=== PATIENT | female | born 1970 | race Caucasian/White ===

== ENCOUNTER 2022-09-15 17:37 | Emergency (ER) | payer BC, SELFPAY ==
[2022-09-15 17:49] VITALS: BP 118/78; PULSE 66; RESP 18; TEMP 36.8; O2SAT 96
--- NOTE | 2022-09-15 18:06 | CRLHL7_ITS ---
For Patients: As a result of the Century Cures Act, medical imaging exams and procedure reports are released immediately into your electronic medical record. You may view this report before your referring provider. If you have questions, please contact your health care provider. INDICATION: Right lower quadrant pain, rule out appy. TECHNIQUE: CT abdomen and pelvis acquired with 81 mL Isovue 370 IV contrast. Coronal and sagittal reformats were generated. COMPARISON: None. FINDINGS: Lower chest: Unremarkable. Liver: Unremarkable. Gallbladder and bile ducts: Unremarkable. No stones or inflammation. No biliary dilation. Spleen: Unremarkable. Calcifications are likely granulomas. Pancreas: Unremarkable. Adrenal glands: Unremarkable. No nodules. Kidneys and Ureters: Unremarkable. No suspicious masses, stones, or hydronephrosis. Lymph Nodes and Retroperitoneum: Unremarkable. Vasculature: Unremarkable. GI tract: Unremarkable. Normal in caliber. Normal appendix. Peritoneum/Abdominal Wall: Unremarkable. No free air or free fluid. Small fat containing periumbilical hernia. Pelvic Viscera: Surgically absent uterus. Left adnexal cystic lesion is probably an ovarian cyst. Bladder: Unremarkable. Bones: Unremarkable for age. IMPRESSION: No CT findings to explain the cause of the patient`s symptoms. Specifically, the appendix is normal. Please note that all CT scans at this facility use dose modulation, iterative reconstruction, and/or weight-based dosing when appropriate to reduce radiation dose to as low as reasonably achievable. Dictated by Fred Gregory MD @ 09/15/2022 6:56:39 PM (Electronically Signed)
--- NOTE | 2022-09-15 18:08 | ED.GENADULT ---
HPI - General Adult General Time Seen by Provider: 18:08 Date Seen: 09/15/22 Chief complaint: Abdominal Pain Stated complaint: Possible Appendicitis Time Seen by Provider: 09/15/22 17:38 Source: patient Mode of arrival: ambulatory Limitations: no limitations History of Present Illness HPI narrative: Patient is a 52 year white female was seen in urgent care today with 2 day history of abdominal pain, started in her periumbilical area and radiated down her right lower quadrant now. She has had hysterectomy and right oophorectomy, left ovaries intact. Most of her discomfort in her right lower quadrant. Did feel some pain in her abdomen when she had bumps on the car ride here. Definitely tender to touch her right lower abdomen. No dysuria, frequency, vaginal bleeding. No diarrhea of significance. No shortness of breath, no COVID symptoms, no chest pain Related Data Previous Rx's Medication Instructions Recorded sertraline 50 mg tablet 50 mg PO QDAY #30 tabs 06/05/22 hydrocodone 5 mg-acetaminophen 325 1 tab PO Q8H #10 tabs 09/15/22 mg tablet Allergies Allergy/AdvReac Type Severity Reaction Status Date / Time No Known Allergies Allergy Unknown Verified 09/15/22 17:49 Review of Systems Status of ROS: Reports: 10 or more systems reviewed and unremarkable except as noted in History and below PFSH [facility] Surgical History History of hysterectomy Social History Smoking Status: Never smoker Do you use any of these nicotine containing products: None Second hand tobacco smoke exposure: No How often do you have a drink containing alcohol: 2-3 times a week How many standard drinks containing alcohol do you have on a typical day: 1 or 2 How often do you have six or more drinks on one occasion: Never AUDIT-C Alcohol total score: 3 Non-prescribed substance use: denies use service: No Exam Narrative: Exam Narrative: Objective: Vital signs unremarkable In general patient is in no marked distress very pleasant HEENT unremarkable Chest clear Heart regular Abdomen benign soft except in the right lower quadrant she has voluntary guarding mild peritoneal tenderness, no palpable mass. No left lower quadrant pain or tenderness, negative CVA tenderness Extremities are no edema Neurologic nonfocal grossly good peripheral perfusion noted Const: Vital Signs, click to edit/add: Vital Signs - 24 hr 09/15/22 17:49 Temperature 98.3 F Pulse Rate [Pulse Oximeter] 66 Respiratory Rate 18 Blood Pressure [Ri ght Upper Arm] 118/78 Pulse Oximetry 96 Oxygen Delivery Me thod Room Air Course Vital Signs Vital signs: Initial Vital Signs Temperature 98.3 F 09/15/22 17:49 Temperature Source Temporal Artery Scan 09/15/22 17:49 Pulse Rate 66 09/15/22 17:49 Pulse Rhythm 09/15/22 17:49 Respiratory Rate 18 09/15/22 17:49 Blood Pressure 118/78 09/15/22 17:49 Blood Pressure Mean 91 09/15/22 17:49 Blood Pressure Position Supine 09/15/22 17:49 Pulse Oximetry 96 09/15/22 17:49 Oxygen Delivery Method 09/15/22 17:49 Vital Signs Temperature 98.3 F 09/15/22 17:49 Pulse Rate 66 09/15/22 17:49 Respiratory Rate 18 09/15/22 17:49 Blood Pressure 118/78 09/15/22 17:49 Pulse Oximetry 96 09/15/22 17:49 Oxygen Delivery Method 09/15/22 17:49 Temperature 98.3 F 09/15/22 17:49 Pulse Rate 66 09/15/22 17:49 Respiratory Rate 18 09/15/22 17:49 Blood Pressure 118/78 09/15/22 17:49 Pulse Oximetry 96 09/15/22 17:49 Oxygen Delivery Method 09/15/22 17:49 Medical Decision Making MDM Narrative Medical decision making narrative: Patient had a normal CBC and a negative urinalysis at the urgent care today. But she presents back on recommendation to rule out appendicitisThe patient has h a hysterectomy and right oophorectomy, left ovaries left intact. Gallbladder is intact. Patient at this point I think needs to have rule out appendicitis, rule out diverticulitis, rule out intestinal obstruction. Patient will get a CT scan with IV contrast of the abdomen pelvis, labs fluids disposition pending findings above. Addendum patient has a CT scan of the abdomen looks unremarkable per Radiology. Labs look reassuring. She has no right ovary which is the side of her abdominal discomfort. Small cyst on the left ovary. At this point I would recommend simply pain control observation, fluids, light diet. Update regular doctor within the next 12:48 p.m., return to ED sooner worsening abdominal pain changes or concerns. Will dispense some [place] to use sparingly, and only at home caution with set of affect. May use Advil as well Lab Data Labs: Lab Results 09/15/22 09/15/22 Range/Units 18:28 18:28 Sodium 136 (135-149) mmol/L Potassium 3.5 L (3.6-5.1) mmol/L Chloride 104 (96-114) mmol/L Carbon Dioxide 28 (20-32) mmol/L BUN 9 (7-30) mg/dL Creatinine 0.6 (0.5-1.5) mg/dL Estimated Creat Clear 88.72 Estimated GFR 109 ml/min Glucose 82 (60-115) mg/dL Calcium 8.4 (8.4-10.6) mg/dL Total Bilirubin 0.4 (0.1-1.5) mg/dL Direct Bilirubin 0.2 (0.0-0.5) mg/dL AST 24 (12-35) U/L ALT 22 (4-35) U/L Alkaline Phosphatase 52 (40-150) U/L C-Reactive Protein 0.6 (0.5-1.0) mg/dL Total Protein 7.3 (6.0-8.3) g/dL Albumin 4.3 (3.3-5.0) g/dL Amylase 71 (18-89) U/L SARS-CoV-2 (PCR) POSITIVE SARS-CoV-2 A (Negative) Discharge Plan Discharge Clinical Impression: Abdominal pain, acute Patient Disposition: Home, Self-Care Condition: Stable Instructions: Acute Abdominal Pain (DC) Additional Instructions: Light activity, light diet, pain med as needed at home. May use Advil as well. Observation, update regular doctor next 24-48 hours, return to ED sooner return occurring pain worsening. 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
[2022-09-15] MEDS: 0.9 % SODIUM CHLORIDE 1000 ml 1,000 ML 6000 ML IV (18:44)
[2022-09-15 18:49] LABS: Albumin* 4.3 g/dL (3.3-5.0); Chloride* 104 mmol/L (96-114)
[2022-09-15 18:50] LABS: Potassium* 3.5 mmol/L (3.6-5.1); Sodium* 136 mmol/L (135-149)
[2022-09-15 18:52] LABS: Amylase* 71 U/L (18-89); Creatinine* 0.6 mg/dL (0.5-1.5); Est. Creatinine Clearance* 88.72; Estimated Glomerular Filt Rate 109 ml/min
[2022-09-15 18:53] LABS: Alanine Aminotransferase* 22 U/L (4-35); Alkaline Phosphatase* 52 U/L (40-150); Aspartate Amino Transferase* 24 U/L (12-35); Bilirubin Direct* 0.2 mg/dL (0.0-0.5); Bilirubin Total* 0.4 mg/dL (0.1-1.5); Blood Urea Nitrogen* 9 mg/dL (7-30); Carbon Dioxide* 28 mmol/L (20-32); Glucose* 82 mg/dL (60-115); Total Protein* 7.3 g/dL (6.0-8.3)
[2022-09-15 18:54] LABS: Calcium* 8.4 mg/dL (8.4-10.6)
[2022-09-15 18:56] LABS: C Reactive Protein* 0.6 mg/dL (0.5-1.0)
[2022-09-15 19:19] LABS: SARS PCR* POSITIVE SARS-CoV-2 (Negative)
== END 2022-09-15 19:20 | disposition home or self-care (01) ==
PROVIDERS: Emergency Provider Family Medicine; PCP Nurse Practitioner Family
DX: R10.0 Acute abdomen (principal)
CPT/HCPCS: 36415; 74177; 80048; 80076; 82150; 86140; 87635; 99284; J7030; Q9967

== ENCOUNTER 2023-04-16 15:35 | Outpatient (CLI) | payer SELFPAY | END 2023-04-16 15:36 | disposition home or self-care (01) | LOC: LONREF 15:36 | PROVIDERS: PCP Nurse Practitioner Family; Visit Provider Nurse Practitioner Family | DX: R20.0 Anesthesia of skin (principal); R20.2 Paresthesia of skin; T14.8XXA Other injury of unspecified body region, initial encounter | CPT/HCPCS: 84443 ==

== ENCOUNTER 2023-04-28 14:59 | Outpatient (CLI) | payer SELFPAY | END 2023-04-28 15:00 | disposition home or self-care (01) | PROVIDERS: PCP Nurse Practitioner Family; Visit Provider Nurse Practitioner Family | DX: R53.83 Other fatigue (principal); F32.A Depression, unspecified; N95.1 Menopausal and female climacteric states | CPT/HCPCS: 82670; 83001; 84481 ==

== ENCOUNTER 2023-06-22 06:36 | Day surgery (SDC) | payer SELFPAY ==
[2023-06-22] MEDS: LACTATED RINGERS 1000 ML 1,000 ML 100 ML IV (06:35)
[2023-06-22] MEDS: fentaNYL 100 MCG/2 ML inj IVP (06:35)
[2023-06-22] MEDS: MIDAZOLAM HCL 1 MG/ML inj IVP (06:35)
[2023-06-22 06:50] VITALS: BMI 29.6
[2023-06-22 07:02] VITALS: BP 96/63; PULSE 65; RESP 16; TEMP 36.5; O2SAT 97
[2023-06-22] MEDS: SODIUM CHLORIDE 0.9 % (FLUSH) 10 ML SYRINGE IVF (07:15)
[2023-06-22 07:21] VITALS: BP 107/71; PULSE 65; RESP 16; O2SAT 97
--- NOTE | 2023-06-22 07:23 | SUR.PREOP ---
TIME?OUT:?0720 PT/RN/MDA?VERIFICATION?OF?SURGICAL?SITE,?PROCEDURE,?AND?CONSENT OBTAINED?PRIOR?TO?INVASIVE?PROCEDURE.left wrist r devaughn dhaliwal crna pt and consent
[2023-06-22] MEDS: CEFAZOLIN 2 GM in 0.9 % SODIUM CHLORIDE Mini-bag 100 ML IVPB (07:35)
--- NOTE | 2023-06-22 08:01 | PM.ORPRC ---
Procedure Note Date of procedure: 06/22/23 Procedure: PREOPERATIVE DIAGNOSIS: 1. Left volar, radial sided wrist benign cyst-suspect ganglion cyst POSTOPERATIVE DIAGNOSIS: 1. Left volar, radial sided wrist benign cyst-suspect ganglion cyst PROCEDURE: 1. Left volar, radial sided wrist benign cyst open excision SURGEON: Mustapha Coffman MD. SENIOR MECHANICAL TECHNICIAN: Vijay Dupree Pac - Of note, an photographer assistant was critical for this case to aid in patient positioning, tissue retraction, limb manipulation/positioning, patient safety, & closure. ANESTHESIA: Regional block plus MAC EBL: 2 mL IMPLANTS: None TOURNIQUET: 10 minutes at 225 torr COMPLICATIONS: None evident INDICATIONS: The patient is a pleasant 52-year-old female who has experienced left volar, radial sided wrist cyst development with pain that has progressively gotten worse. Nonoperative management has been tried but unsuccessful. Given the failure of nonoperative management, and how this affects daily life, surgery was recommended. DESCRIPTION OF PROCEDURE: Following a thorough discussion of risks, benefits, and alternatives consent was obtained and the operative extremity was marked. The patient was brought to the operating room and placed supine on the operating table. No antibiotics were administered as this was planned to be a local case only. Proper time-out was performed identifying proper patient, site, and procedure. The operative extremity was prepped and draped in the appropriate sterile fashion using ChloraPrep. The limb was exsanguinated and the tourniquet inflated. An incision was made on the volar aspect of the radial sided left wrist longitudinally. Sharp incision through skin and blunt dissection to subcutaneous tissue allowed us to identify the radial artery which was immediately intimate with cystic structure. The cyst was mobilized from the radial artery and the surrounding adhesed tissues. Its stalk was tracked down deep to the volar wrist joint itself and amputated with a bipolar cautery at its base. This was sent for permanent pathology. At 1 point, the cyst was punctured and a thick, viscous, gelatinous, clear colored fluid was expressed consistent with a ganglion cyst type of appearance. At this stage, the tourniquet was deflated and hemostasis achieved. The radial artery had good pulsatile flow. Closure was performed with 4-0 Stratafix. Soft dressings were applied, and the patient was awoken/transferred to the recovery room in stable condition. PLAN: 1. Encourage elevation of the operative extremity. 2. Range of motion of the operative extremity/digits as tolerated. 3. Ibuprofen, acetaminophen and/or oxycodone as needed for pain. 4. Follow up with PA visit in 12-16 days for wound check and suture removal.
[2023-06-22 08:20] VITALS: BP 99/63; PULSE 68; RESP 16; TEMP 36.4; O2SAT 95
--- NOTE | 2023-06-22 08:25 | W.ANESCHARGE ---
Anesthesia Charges Start Date/Time Anesthesia Start Date: 06/22/23 Anesthesia Start Time: 07:30 Stop Date/Time Anesthesia Stop Date: 06/22/23 Anesthesia Stop Time: 08:23
[2023-06-22 08:30] VITALS: BP 137/66; PULSE 66; RESP 16; O2SAT 95
[2023-06-22 08:45] VITALS: PULSE 61; RESP 16; O2SAT 94
--- NOTE | 2023-06-22 08:59 | W.PM.NB ---
Nerve Block Nerve Block Time Seen by Provider: 07:30 Date Seen: 06/22/23 Type of block requested by surgeon for post-operative analgesia: axillary Side: left Time out performed: Yes Verification of patient name: Yes Verification of date of : Yes Site marking: site marked Name of person performing procedure: Ravindra Contreras Continuous monitoring Was continuous monitoring of O2 sat, B/P, environmental monitoring specialist, recorded every 15 minutes?: Yes Procedure Checklist: sterile prep, needles and gloves Ultrasound guided. Images saved: Yes Medications given in 5ml increments after negative aspiration: Ropivicaine %: 0.5 mL: 20 Needle gauge: 20 Patient tolerated procedure well: Yes Additional comments: Injected in 5ml increments after negative aspiration Block Charges Block Charge (with Pro Fee): Axillary Nerve Use of Ultrasound Machine for Block: Yes- US Guidance/pain block
== END 2023-06-22 09:01 | disposition home or self-care (01) ==
PROVIDERS: PCP Nurse Practitioner Family; Visit Provider Orthopaedic Surgery Sports Medicine
PROC: (CPT 25111; principal; 2023-06-22 08:00)
DX: M67.432 Ganglion, left wrist (principal); G89.18 Other acute postprocedural pain
CPT/HCPCS: 25111; 01810; 64417; 76942; 88304; J0690; J2250; J2405; J2704; J2795; J3010; J7120

== ENCOUNTER 2024-04-04 21:56 | Emergency (ER) | payer OTHER, SELFPAY ==
[2024-04-04 22:03] VITALS: BP 169/82; PULSE 80; RESP 18; TEMP 36.6; O2SAT 100; BMI 31.9
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
[2024-04-04 23:35] VITALS: BP 145/74; PULSE 74; RESP 18; TEMP 36.6; O2SAT 100
[2024-04-04 23:40] VITALS: BP 145/74; PULSE 74; RESP 18; TEMP 36.6
== END 2024-04-04 23:40 | disposition home or self-care (01) ==
PROVIDERS: Emergency Provider Family Medicine; PCP Nurse Practitioner Family
DX: S61.211A Laceration without foreign body of left index finger without damage to nail, initial encounter (principal); W26.9XXA Contact with unspecified sharp object(s), initial encounter
CPT/HCPCS: 12001; 99283; 99284